=== PATIENT | female | born 1970 | race Caucasian/White ===

== ENCOUNTER 2018-07-02 10:35 | Emergency (ER) | payer BC ==
--- NOTE | 2018-07-02 11:14 | XRAY Report ---
Reason: brusing Procedure Date: 07/02/2018 Accession Number: [id number] / [id number] Procedure: XR - Elbow 3 View LT CPT Code: FULL RESULT: EXAM: LEFT ELBOW RADIOGRAPHY EXAM DATE: 07/02/2018 10:57 AM. CLINICAL HISTORY: Bruising, painful COMPARISON: None. TECHNIQUE: 3 views. FINDINGS: Bones: Normal. No fractures or bone lesions. Joints: Normal. No effusion. No subluxation. Soft Tissues: Normal. No soft tissue swelling. IMPRESSION: Normal elbow radiography. [facility]
[2018-07-02 12:16] VITALS: BP 126/83
--- NOTE | 2018-07-02 12:24 | ED Physician Documentation ---
PD HPI UPPER EXT INJURY - Stated complaint Stated Complaint: ELBOW INJURY - Chief complaint Chief Complaint: Ext Problem - History obtained from History obtained from: Patient, Family - History of Present Illness Location: Left, Elbow Type of injury: Other (hit on futon) Where injury occurred: Home Timing - onset: Yesterday Timing - duration: Days (1) Timing - details: Gradual onset Pain level max: 6 Pain level now: 3 Improved by: Rest, Ice, Immobilization Worsened by: Moving, Palpating Associated symptoms: Swelling, Discolored (bruising). No: Weakness, Numbness, Tingling Contributing factors: No: Anticoagulated Recently seen: Not recently seen - Additonal information Additional information: pt is right handed Review of Systems Skin: denies: Rash Musculoskeletal: denies: Neck pain, Back pain Neurologic: denies: Head injury PD PAST MEDICAL HISTORY - Past Medical History Past Medical History: No - Past Surgical History Past Surgical History: No - Allergies Allergies/Adverse Reactions: Allergies Allergy/AdvReac Type Severity Reaction Status Date / Time Penicillins Allergy Edema Verified 07/02/18 10:39 erythromycin base AdvReac Unknown Verified 07/02/18 10:39 PD ED PE NORMAL - Vitals Vital signs reviewed: Yes - General General: Alert and oriented X 3, No acute distress - HEENT HEENT: Moist mucous membranes - Neck Neck: Supple, no meningeal sign - Derm Derm: Warm and dry - Extremities Extremities: Other (L elbow - TTP, swelling, ecchymosis over the lateral epicondyle. FROM present. No tenderness over the radial head. NVI) - Neuro Neuro: Alert and oriented X 3 Results - Vitals Vitals: Vital Signs - 24 hr 07/02/18 07/02/18 10:37 12:15 Temperature 36.7 C 36.6 C Heart Rate 84 76 Respiratory 17 Rate Blood Pressure 126/83 H O2 Saturation 99 100 Oxygen O2 Source Room air - Rads (name of study) L elbow xray Radiology: Prelim report reviewed, EMP read contemporaneously, See rad report (normal xray) PD MEDICAL DECISION MAKING - ED course Complexity details: reviewed results, re-evaluated patient, considered differential, d/w patient ED course: Patient with a left elbow contusion. Sling placed. Declines pain medication here for home. Neurovascular intact. Patient counseled regarding signs and symptoms for which I believe and urgent re-evaluation would be necessary. Patient with good understanding of and agreement to plan and is comfortable goi ng home at this time This document was made in part using voice recognition software. While efforts are made to proofread this document, sound alike and grammatical errors may occur. Departure - Departure Disposition: 01 Home, Self Care Clinical Impression: Left elbow contusion Qualifiers: Encounter type: initial encounter Qualified Code(s): S50.02XA - Contusion of left elbow, initial encounter Condition: Good Instructions: ED Contusion Elbow Follow-Up: your,doctor in 1 week [Other] Comments: You can use Motrin or Tylenol as needed for pain. Wear the sling for 2 to 3 days. Return if you worsen. There is no fracture on x-ray today
== END 2018-07-02 12:32 | disposition home or self-care (01) ==
LOC: ED 10:35
DX: S50.02XA Contusion of left elbow, initial encounter (principal); W22.03XA Walked into furniture, initial encounter; Y93.89 Activity, other specified; Y92.009 Unspecified place in unspecified non-institutional (private) residence as the place of occurrence of the external cause
CPT/HCPCS: 99282; 99283